=== PATIENT | female | born 1990 | race Caucasian/White ===

== ENCOUNTER → 2016-10-25 | Outpatient (CLI) | payer OTHER ==
[~2016-10-25] VITALS: Ht 165.1 cm; Wt 90.3 kg
[~2016-10-25] MED LIST: ALEVE220 MG PO; ATIVAN0.5 MG PO; JOLIVETTE0.35 MG PO; LAMOTRIGINE OD100 MG PO; MEDROLDOSEPACK PO; ZOVIA 1-35E1 EACH PO
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
[2016-10-25 09:19] VITALS: BP 133/81
== END | disposition home or self-care (01) ==
LOC: PAIN 07:02
DX: M79.1 Myalgia (principal); L40.9 Psoriasis, unspecified